=== PATIENT | male | born 1970 | race Caucasian/White ===

== ENCOUNTER 2017-05-07 16:36 | Inpatient (IN) | payer MEDICAID ==
[~2017-05-07] VITALS: Ht 182.9 cm; Wt 69.2 kg
[2017-05-07 18:07] LABS: Basophils # (auto) 0.1 uL; Basophils % (auto) 1.1 % (0.0-2.0); CONDITION Y; Eosinophils # (auto) 0.2 uL; Eosinophils % (auto) 3.3 % (0.0-7.0); Hematocrit 26.1 % (41.0-53.0); Hemoglobin 8.6 g/dL (13.5-17.5); Lymphocytes # (auto) 1.2 uL; Lymphocytes % (auto) 24.9 % (10.0-50.0); Mean Corpuscular Hemoglobin 28.8 pg (28.0-32.0); Mean Corpuscular Hgb Conc. 32.8 g/dL (32.0-36.0); Mean Corpuscular Volume 87.7 fL (80.0-100.0); Mean Platelet Volume 8.4 fL (7.4-10.4); Monocytes # (auto) 0.7 uL; Monocytes % (auto) 13.9 % (0.0-12.0); Neutrophils # (auto) 2.8 uL; Neutrophils % (auto) 56.8 % (37.0-80.0); Platelet Count (auto) 162 10^3/uL (140-450); Red Cell Distribution Width 17.9 % (11.6-16.0); White Blood Cell 4.9 10^3/uL (4.4-10.8)
[2017-05-07 18:24] LABS: Albumin 3.1 g/dL (3.4-5.0); BUN/Creatinine Ratio 16.3; Bilirubin, Total 0.6 mg/dL (0.2-1.0); Calcium 8.1 mg/dL (8.5-10.1); Total Protein 8.1 g/dL (6.4-8.2)
[2017-05-07 18:33] LABS: Potassium 2.9 mmol/L (3.5-5.1)
[2017-05-07] MEDS ORDERED: POTASSIUM CHL 20 Meq TABLET PO ONE (19:30)
[2017-05-07] MEDS ORDERED: VANCOMYCIN 1GM/250ML D5W 250 ML IV ONE (23:00)
[2017-05-07] MEDS ORDERED: cefTRIAXone 1GM/50ML D5W 50 ML IV ONE (23:00)
[2017-05-08] MEDS ORDERED: TEMAZEPAM 15 MG CAP PO PRN (04:30)
[2017-05-08] MEDS ORDERED: ONDANSETRON HCL 4 MG/2 ML VIAL IV PRN (04:30)
[2017-05-08] MEDS ORDERED: ACETAMINOPHEN 325 MG TAB PO PRN (04:30)
[2017-05-08] MEDS: SODIUM CHLORIDE 0.9% 1,000 ML IV SCH ×2 (05:54→22:11)
[2017-05-08] MEDS: CLINDAMYCIN 600MG IV 50 ML IV SCH ×3 (06:21→22:11)
[2017-05-08 09:00] VITALS: BP 105/62
[2017-05-08] MEDS: FAMOTIDINE 20 MG TAB PO SCH ×2 (11:17→22:10)
[2017-05-08] MEDS: ENOXAPARIN SOD 40 MG/0.4 ML SYRINGE SC SCH (11:17)
[2017-05-08 13:00] VITALS: BP 111/71
[2017-05-08] MEDS ORDERED: cefTRIAXone 1GM/50ML D5W 50 ML IV ONE (13:30)
[2017-05-08] MEDS ORDERED: LACT10SO3 PO (17:12)
[2017-05-08] MEDS ORDERED: FURO40TA4 PO (17:12)
[2017-05-08] MEDS ORDERED: ALBUAER3 IN (17:13)
[2017-05-08] MEDS ORDERED: PANT1INJ3 PO (17:13)
[2017-05-08 17:54] VITALS: BP 105/62
[2017-05-08] MEDS: BOOST PLUS 8 ounce PO SCH (18:00)
[2017-05-08 18:22] VITALS: BP 105/62
[2017-05-08 18:35] LABS: BUN/Creatinine Ratio 21.4; Calcium 7.6 mg/dL (8.5-10.1); Potassium 3.7 mmol/L (3.5-5.1)
[2017-05-08 20:00] VITALS: BP 119/65
[2017-05-08 21:30] VITALS: BP 119/65
[2017-05-08] MEDS: HYDROcodone-ACET 5/325MG TAB PO PRN (22:10)
[2017-05-09 05:21] VITALS: BP 110/69
[2017-05-09] MEDS: CLINDAMYCIN 600MG IV 50 ML IV SCH (05:37)
[2017-05-09 05:59] LABS: Basophils # (auto) 0 uL; Basophils % (auto) 1.3 % (0.0-2.0); CONDITION Y; DEFINITIVE SEE PRINTOUT; Eosinophils # (auto) 0.1 uL; Eosinophils % (auto) 4.2 % (0.0-7.0); Hematocrit 25.4 % (41.0-53.0); Hemoglobin 8.2 g/dL (13.5-17.5); Lymphocytes # (auto) 1.1 uL; Lymphocytes % (auto) 34.2 % (10.0-50.0); Mean Corpuscular Hemoglobin 28.3 pg (28.0-32.0); Mean Corpuscular Hgb Conc. 32.2 g/dL (32.0-36.0); Mean Corpuscular Volume 88.1 fL (80.0-100.0); Mean Platelet Volume 8.8 fL (7.4-10.4); Monocytes # (auto) 0.4 uL; Monocytes % (auto) 12.6 % (0.0-12.0); Neutrophils # (auto) 1.5 uL; Neutrophils % (auto) 47.7 % (37.0-80.0); Platelet Count (auto) 133 10^3/uL (140-450); Red Cell Distribution Width 17.5 % (11.6-16.0); White Blood Cell 3.2 10^3/uL (4.4-10.8)
[2017-05-09 06:33] LABS: Albumin 2.3 g/dL (3.4-5.0); Potassium 4.1 mmol/L (3.5-5.1)
[2017-05-09 06:36] LABS: BUN/Creatinine Ratio 23.2; Calcium 7.7 mg/dL (8.5-10.1); Total Protein 6.7 g/dL (6.4-8.2)
[2017-05-09 06:48] LABS: Bilirubin, Total 0.4 mg/dL (0.2-1.0)
[2017-05-09 08:00] VITALS: BP 113/68
[2017-05-09] MEDS: BOOST PLUS 8 ounce PO SCH ×3 (08:00→18:29)
[2017-05-09 09:00] VITALS: BP 113/68
[2017-05-09] MEDS ORDERED: cefTRIAXone 1GM/50ML D5W 50 ML IV SCH (09:00)
[2017-05-09 13:00] VITALS: BP 108/67
[2017-05-09] MEDS: FAMOTIDINE 20 MG TAB PO SCH ×2 (13:00→21:22)
[2017-05-09] MEDS: HYDROcodone-ACET 5/325MG TAB PO PRN ×2 (13:00→21:22)
[2017-05-09] MEDS: ENOXAPARIN SOD 40 MG/0.4 ML SYRINGE SC SCH (13:00)
[2017-05-09 14:34] LABS: Hematocrit 24.4 % (41.0-53.0); Hemoglobin 8.2 g/dL (13.5-17.5); Reticulocyte Count 1.96 % (0.5-1.5)
[2017-05-09 15:30] LABS: Temperature: 22.9 C (20.0-25.0)
[2017-05-09 17:00] VITALS: BP 114/73
[2017-05-09] MEDS: AMOXICILLIN/CLAVUL 875 MG TAB PO SCH (21:22)
[2017-05-09 21:54] VITALS: BP 112/59
[2017-05-10 05:03] VITALS: BP 117/62
[2017-05-10 08:00] VITALS: BP 110/62
[2017-05-10] MEDS: BOOST PLUS 8 ounce PO SCH ×2 (08:47→12:07)
[2017-05-10 09:07] VITALS: BP 110/62
[2017-05-10] MEDS: ENOXAPARIN SOD 40 MG/0.4 ML SYRINGE SC SCH (10:03)
[2017-05-10] MEDS: FAMOTIDINE 20 MG TAB PO SCH (10:03)
[2017-05-10] MEDS: AMOXICILLIN/CLAVUL 875 MG TAB PO SCH (10:03)
[2017-05-10 13:00] VITALS: BP 94/54
[2017-05-10 15:55] VITALS: BP 94/54
== END 2017-05-10 17:10 | disposition home or self-care (01) | DRG 383 ==
LOC: ER 16:40 → OVERFLOW 16:41 → WEST WING 05-08 08:50
PROVIDERS: ADMIT Nurse Practitioner; ATTEND Internal Medicine Pulmonary Disease
DX: L03.116 Cellulitis of left lower limb (principal); E44.0 Moderate protein-calorie malnutrition; E87.1 Hypo-osmolality and hyponatremia; E88.09 Other disorders of plasma-protein metabolism, not elsewhere classified; E87.6 Hypokalemia; L97.529 Non-pressure chronic ulcer of other part of left foot with unspecified severity; D63.8 Anemia in other chronic diseases classified elsewhere; E86.0 Dehydration; F17.210 Nicotine dependence, cigarettes, uncomplicated; Z59.0 Homelessness; Z83.3 Family history of diabetes mellitus; Z68.20 Body mass index [BMI] 20.0-20.9, adult; Z80.9 Family history of malignant neoplasm, unspecified
CPT/HCPCS: 36415; 73630; 80048; 80053; 80307; 82607; 82728; 82746; 82962; 85014; 85018; 85025; 85045; 87040; 87081; 93971; J0696; J3490